=== PATIENT | female | born 1940 | race Caucasian/White ===

== ENCOUNTER → 2020-07-31 09:35 | Outpatient (CLI) | payer MEDICARE, OTHER, SELFPAY ==
--- NOTE | ~2020-07-31 | CT_ITS ---
EXAMINATION: CT abdomen pelvis w con EXAM DATE: 07/31/2020 10:22 INDICATION: Mid epigastric pain, history diverticulitis. Irritable bowel syndrome. Bilateral oophorec chey. TECHNIQUE: Spiral CT of the abdomen and pelvis was performed following intravenous injection of 100 m L Omnipaque 350. Axial, coronal and sagittal images were reviewed. The dose-length product (DLP) fo r this examination was 390.16 mGy-cm. The exposure was tailored according to patient size (auto mA e xposure control), and iterative reconstruction (ASIR) was used as additional dose reduction technique . Comparison is made to prior examination from 02/12/2018. FINDINGS: The liver, spleen, adrenal glands and pancreas are unremarkable. Gallbladder is unremarka ble. No biliary obstruction. Portal and splenic veins are patent. Kidneys enhance symmetrically. There is no hydronephrosis. There is punctate right inferior calyceal stone and a punctate left mid c alyceal stone.. The uterus is retroverted and morphologically normal. The bladder is unremarkable. There is no retroperitoneal or pelvic lymphadenopathy. There is mild scattered arteriosclerotic d isease. The appendix is normal. The stomach and small bowel are unremarkable. There is moderate to large am ount of colonic stool from the cecum through the transverse colon There is mild sigmoid colonic diver ticulosis. There is no adjacent inflammatory change to suggest diverticulitis. No free intraperiton eal gas. The heart is normal in size. There are no pericardial or pleural effusions. The lung bas es are unremarkable. There are no osteoblastic or osteolytic lesions identified. There is mild lumba r levoscoliosis. compared to prior study, interval increase in quantity of colonic stool. Otherwise no significant interval change. IMPRESSION: 1. Moderate to large amount of right hemicolonic stool, consider constipation. 2. Punctate bilateral nephrolithiasis. Reviewed, dictated and finalized at location A.
--- NOTE | ~2020-07-31 | US_ITS ---
EXAMINATION: US abdomen complete EXAM DATE: 07/31/2020 10:01 INDICATION: Left side abdominal pain, discomfort. Epigastric region. TECHNIQUE: Multiple grayscale and Doppler images of the complete abdomen were obtained (by a technolo gist who performed the scan) and subsequently reviewed. There is no prior study for comparison. FINDINGS: The abdominal aorta is normal in caliber. Mild scattered aortic arterial sclerosis. Visualized porti on IVC is patent. The pancreatic head and body are normal in appearance. The pancreatic tail is no t visualized. The liver has normal echogenicity and contour. There are no focal liver lesions identified. There is no evidence of intrahepatic biliary duct dilation. Portal venous flow was seen in the hepatopedal , normal direction and has normal Doppler waveform. Common bile duct measures 4 mm, which is normal. The gallbladder wall is normal in thickness, with ex pected amount of distention. No sonographic evidence of pericholecystic fluid. There is no cholelit hiases. Technologist performing exam reports patient did not demonstrate sonographic Rock's sign. Please note that this sign is less reliable in patients who have received pain medication. Right kidney: There is normal contour and echogenicity. It measures 8.9 x 4.1 x 4.4 centimeters. T here are no focal renal lesions identified. There is no hydronephrosis. Left kidney: There is normal contour and echogenicity. It measures 10.9 x 5.0 x 5.6 centimeters. T here are no focal renal lesions identified. There is no hydronephrosis. The spleen measures 7.2 centimeters and is morphologically normal. IMPRESSION: 1. Mild aortic arterial sclerosis. 2. Otherwise unremarkable complete abdomen ultrasound. Reviewed, dictated and finalized at location A.
[2020-07-31 10:11] LABS: Estimated Glomerular Filt Rate 53
== END ==
PROVIDERS: Visit Provider Physician Assistant
DX: R10.9 Unspecified abdominal pain (principal); N20.0 Calculus of kidney; I70.0 Atherosclerosis of aorta
CPT/HCPCS: 74177; 76700; Q9967

== ENCOUNTER 2020-08-23 10:13 | Emergency (ER) | payer MEDICARE, OTHER, SELFPAY ==
--- NOTE | ~2020-08-23 | US_ITS ---
EXAMINATION: US venous doppler [facility] EXAM DATE: 08/23/2020 12:01 INDICATION: Left calf pain. TECHNIQUE: Multiple grayscale, color flow and Doppler images of the left lower extremity deep venous system were obtained and reviewed. There is no prior study for comparison. FINDINGS: The left common femoral, femoral and profunda veins demonstrate normal color flow, respirat ory variation, augmentation and compressibility. Compressibility, color flow confirmed within the le ft popliteal, posterior tibial, peroneal, and greater saphenous veins. There is a focal hypoechoic region along the proximal aspect of the calf appears within the musculatu re which is oval, elongated measuring about 6 x 3 x 2 cm. No appreciable vascularity within this, alt neris echogenicity suggests this is solid. This is nonspecific. IMPRESSION: 1. No left lower extremity deep venous thrombosis. 2. Nonspecific left calf mass like region. Could be edematous muscle from contusion, hematoma, less likely neoplastic. Clinical correlation, consider 2 week follow-up exam and if it persists a CT lower extremity with contrast. Reviewed, dictated and finalized at location B. IMPRESSION: 1. No left lower extremity deep venous thrombosis. 2. Nonspecific left calf mass like region. Could be edematous muscle from cont usion, hematoma, less likely neoplastic. Clinical correlation, consider 2 week follow-up exam and if it persists a CT lower extremity with contrast.
[2020-08-23 10:39] VITALS: BP 141/79; PULSE 99; RESP 18; TEMP 36.4; O2SAT 99
--- NOTE | 2020-08-23 11:08 | PC.NURSE ---
patient brought back to ED room 8 with c/o pain and tenderness to her left calf that started yesterday. patient is very active. no increase in pain or swelling with activity. increase pain she noted this am when she awoke. has tender area with mild swelling on left calf. no bruising noted. no open wound noted. alert. resting on stretcher. call light in reach. aware of expected treatment time. assessments documented.
--- NOTE | 2020-08-23 11:19 | ED.LOWEXIN ---
HPI - Extremity Injury (Lower) General Chief Complaint: Extremity Injury, Lower Stated Complaint: possible DVT Time Seen by Provider: 08/23/20 11:03 Source: patient Mode of arrival: ambulatory Limitations: no limitations History of Present Illness HPI Narrative: This patient is a 79 year old female with history of hypertension who presents for evaluation left calf pain. She states she noticed some mild pain to her left calf 10 days. She is active, and she rides her bike 6-7 miles a day. She reports her pain has been bothering her while riding her bike, but this morning she was having severe pain with walking. She denies history of dVT , PE, chest pain or sob. She has been taking aleve which helps her pain. Related Data Home Medications Medication Instructions Recorded Confirmed aspirin 81 mg tablet,delayed 81 mg PO DAILY 09/25/19 08/01/20 release glucosamine sulf dipotassium Cl tablet PO 09/25/19 08/01/20 500 mg-chondroitin sulf 400 mg tablet montelukast 10 mg tablet 10 mg PO DAILY 09/25/19 08/01/20 psyllium husk 0.52 gram capsule 0.52 gm PO DAILY 09/25/19 08/01/20 wfpokqdhwpuu-ojpgaiwr-zsilsy 1 tablet PO DAILY 07/27/20 08/01/20 Allergies Allergy/AdvReac Type Severity Reaction Status Date / Time Penicillins Allergy Mild RASH PCN Verified 08/23/20 11:31 W/CORTISONE NO REACTION TO CORTISONE IN PAST Review of Systems Review of Systems: All systems reviewed & are unremarkable except as noted in HPI and below Constitutional: Constitutional: Denies chills and Denies fever(s) Cardiovascular: Cardiovascular: Denies chest pain Respiratory: Respiratory: Denies cough and Denies dyspnea Gastrointestinal: Gastrointestinal: Denies abdominal pain and Denies nausea Neurologic: Denies syncope, Denies focal weakness, Denies numbness and Denies weakness [facility] Past Medical History Medical History (Updated 08/23/20 @ 13:21 by Josselyn Knutson MD) Hypertension Surgical History Surgical History (Updated 08/23/20 @ 11:25 by Josselyn Knutson MD) History of bilateral knee replacement Social History Social History Smoking status: Never smoker Second hand tobacco smoke exposure: No Alcohol intake: current Substance use: never Gender identity (if verbalized by the patient): Female Exam Const: General: no acute distress and alert Orientation/consciousness: patient oriented x3 Eyes: EOM: EOMs intact bilaterally Chest: Chest palpation & inspection: normal inspection of the chest Resp: Effort & Inspection: normal respiratory effort Neuro: General: patient oriented x3 and moves all extremities Extrem: Other: no significant swelling, left calf tenderness, no erythema, no appreciable mass. pedal pulses present Psych: Mental Status: mental status grossly normal Course Reevaluation(s) Reevaluation #1: I Discussed with patient ultrasound shows possible hematoma vs muscle mass. Patient does exercise quite strenously so it may just be muscle contusion or hematoma. I offered CT scan of her leg. She wants to wait 2 weeks and reevaluate with PCP. If needed she will get CT at that time. Date: 08/23/20 Time: 13:16 Vital Signs Vital signs: Vital Signs Temperature 97.6 F 08/23/20 10:39 Pulse Rate 99 08/23/20 10:39 Respiratory Rate 18 08/23/20 10:39 Blood Pressure 141/79 H 08/23/20 10:39 Pulse Oximetry 99 08/23/20 10:39 Temperature 97.6 F 08/23/20 10:39 Pulse Rate 87 08/23/20 13:27 Respiratory Rate 18 08/23/20 13:27 Blood Pressure 141/78 H 08/23/20 13:27 Pulse Oximetry 100 08/23/20 13:27 MDM - Extremity Injury (Lower) Lab Data Attestation: I reviewed the patient's lab results. Result diagrams: 08/23/20 12:04 08/23/20 12:04 Labs: Lab Results 08/23/20 08/23/20 08/23/20 Range/Units 12:04 12:04 12:04 WBC 5.5 (4.5-1
--- NOTE | 2020-08-23 12:12 | PC.NURSE ---
patient back from ultrasound. labs pending.
[2020-08-23 12:18] LABS: Basophils Absolute Auto 0.1 K/mm3 (0.0-0.1); Basophils Percent Auto 1.1 % (0.2-1.2); Eosinophils Absolute Auto 0.3 K/mm3 (0-0.3); Eosinophils Percent Auto 4.7 % (0-4.4); Hematocrit 43.9 % (37.0-47.0); Hemoglobin 14.5 g/dL (12.0-15.0); Immature Granulocyte Absolute 0.01 K/mm3 (0.00-0.031); Immature Granulocyte Percent A 0.2 % (0-0.5); Lymphocytes Absolute Auto 0.94 K/mm3 (0.9-3.2); Lymphocytes Percent Auto 17.1 % (18.3-44.2); Mean Corpuscular Hemoglobin 31.3 pg (26-34); Mean Corpuscular Volume 94.6 fl (80-100); Mean Platelet Volume 10.2 fl (7.4-10.4); Monocytes Absolute Auto 0.4 K/mm3 (0.1-0.6); Monocytes Percent Auto 7.1 % (2.6-8.5); Neutrophils Absolute Auto 3.8 K/mm3 (1.3-6.7); Neutrophils Percent Auto 69.8 % (45.5-73.1); Platelet Count Result 254 k/mm3 (150-375); Red Blood Count 4.64 M/mm3 (4.2-5.4); Red Cell Distribution Width 12.7 % (11.5-14.5); White Blood Count 5.5 K/mm3 (4.5-10.0)
[2020-08-23 12:21] LABS: INR 0.9; Prothrombin Time 12.1 Seconds (11.1-14.7)
[2020-08-23 12:22] LABS: Partial Thromboplastin Time 25.7 SECONDS (22.3-36.8)
[2020-08-23 12:44] LABS: Alanine Aminotransferase 11 U/L (4-35); Albumin Level 4.5 g/dL (3.5-5.1); Alkaline Phosphatase 92 U/L (38-126); Anion Gap 7 mmol/L (8-16); Aspartate Amino Transferase 37 U/L (14-36); Bilirubin,Total 0.5 mg/dL (0.2-1.3); Blood Urea Nitrogen 16 mg/dL (7-17); Calcium 9.8 mg/dL (8.4-10.2); Carbon Dioxide 32 mmol/L (22-30); Chloride 101 mmol/L (98-107); Creatine Kinase 71 U/L (30-135); Estimated CRCL calculation 34 ml/min; Estimated Glomerular Filt Rate 60; Glucose 93 mg/dL (65-105); Potassium 4.2 mmol/L (3.4-5.0); Sodium 140 mmol/L (137-145)
[2020-08-23 13:27] VITALS: BP 141/78; PULSE 87; RESP 18; O2SAT 100
== END 2020-08-23 13:29 | disposition home or self-care (01) ==
PROVIDERS: Emergency Provider General Practice; PCP Physician Assistant
DX: S80.12XA Contusion of left lower leg, initial encounter (principal); X58.XXXA Exposure to other specified factors, initial encounter; I10 Essential (primary) hypertension; Z96.653 Presence of artificial knee joint, bilateral
CPT/HCPCS: 36415; 80053; 82550; 85025; 85610; 85730; 93971; 99284

== ENCOUNTER → 2020-08-31 08:38 | Outpatient (CLI) | payer MEDICARE, OTHER, SELFPAY ==
--- NOTE | ~2020-08-31 | CT_ITS ---
EXAMINATION: CT LE LT w con DATE: 08/31/2020 09:09 INDICATION: Left lower leg pain and swelling TECHNIQUE: High resolution computed tomography (CT) of the left lower leg excluding the left foot was performed without intravenous contrast. Additional sagittal and coronal reconstructions were perform ed. Automated exposure control and iterative reconstruction technique were employed. The dose-length product was 374.99 mGy-cm. COMPARISON: Ultrasound dated 09/02/2020 FINDINGS: Cemented medial unicompartmental left knee arthroplasty which appears well seated with no surrounding lucency to suggest loosening or infection. Alignment is normal. No fracture. Small marginal osteophy claudia at the lateral and patellofemoral compartments without significant joint space narrowing on nonwe ightbearing imaging consistent with at least mild osteoarthritis. Small central osteophytes along the patellar apical ridge consistent with high-grade chondromalacia. There is moderate fatty atrophy of the medial head of the gastrocnemius muscle. There is a lenticular complex fluid collection with hete rogeneous attenuation corresponding in size and location to the fluid collection identified on the pr ior ultrasound. This measures 12 cm in craniocaudal length and 2.9 x 2.1 cm maximal transaxial dimens ions. There is minimal peripheral enhancement without significant surrounding hyperemia or inflammato ry stranding which along with provided clinical history be most consistent with a hematoma related to muscle strain. The remaining musculature of the lower leg appears normal. No significant atheroscler otic disease appreciated with three-vessel runoff below the ankle. No left knee or ankle joint effusi ons. IMPRESSION: 1. 12 x 2.9 x 2.1 cm lenticular fluid collection in the proximal calf within the medial head of the g astrocnemius muscle most likely representing a hematoma related to muscle strain. There is moderate f atty atrophy of the muscle belly which could be related to either prior trauma or denervation. 2. Medial unicompartmental arthroplasty at the left knee with mild osteoarthritis in the medial and p atellofemoral compartments. No acute osseous abnormality. Reviewed, dictated and finalized at location B. IMPRESSION: 1. 12 x 2.9 x 2.1 cm lenticular fluid collection in the proximal calf within th e medial head of the gastrocnemius muscle most likely representing a hematoma r elated to muscle strain. There is moderate fatty atrophy of the muscle belly wh ich could be related to either prior trauma or denervation. 2. Medial unicompartmental arthroplasty at the left knee with mild osteoarthrit is in the medial and patellofemoral compartments. No acute osseous abnormality.
[2020-08-31 11:09] LABS: Estimated Glomerular Filt Rate 60
== END ==
PROVIDERS: PCP Internal Medicine; Visit Provider Physician Assistant
DX: M17.12 Unilateral primary osteoarthritis, left knee (principal)
CPT/HCPCS: 73701; Q9967

== ENCOUNTER 2020-10-03 11:33 | Outpatient (NON) | payer MEDICARE, OTHER, SELFPAY ==
[2020-10-04 14:04] LABS: SARS-CoV-2 RNA PCR Negative
== END 2020-10-03 11:34 ==
LOC: ANHCOVIDDT 11:39
PROVIDERS: Visit Provider Physician Assistant
DX: R68.89 Other general symptoms and signs (principal); Z20.828 Contact with and (suspected) exposure to other viral communicable diseases
CPT/HCPCS: 87635; C9803; U0003

== ENCOUNTER 2021-05-17 12:55 | Outpatient (CLI) | payer MEDICARE, OTHER, SELFPAY | END 2021-05-17 12:56 | disposition home or self-care (01) | LOC: ANHAUDIO 12:57 | PROVIDERS: PCP Internal Medicine; Visit Provider Otolaryngology | DX: H90.3 Sensorineural hearing loss, bilateral (principal) | CPT/HCPCS: 92557; 92567 ==

== ENCOUNTER → 2021-10-17 13:27 | Outpatient (CLI) | payer MEDICARE, OTHER, SELFPAY ==
--- NOTE | ~2021-10-17 | XR_ITS ---
EXAMINATION: XR shoulder RT min 2V DATE: 10/17/2021 13:46 INDICATION: Right shoulder pain. TECHNIQUE: 4 views of right shoulder were obtained. COMPARISON: None. FINDINGS: Bone alignment is normal. No fracture. There is mild osteoarthritis of glenohumeral joint a nd acromioclavicular joint. There is mild scarring at right lung apex. IMPRESSION: 1. Mild polyarticular osteoarthritis. Reviewed, dictated and finalized at location A. F [employer]
== END ==
PROVIDERS: PCP Internal Medicine; Visit Provider Physician Assistant
DX: M19.011 Primary osteoarthritis, right shoulder (principal)
CPT/HCPCS: 73030

== ENCOUNTER 2022-09-17 01:24 | Day surgery (SDC) | payer MEDICARE, OTHER, SELFPAY ==
[2022-09-09 14:58] VITALS: BMI 23.3
[2022-09-17 09:49] VITALS: BP 129/66; PULSE 100; RESP 17; TEMP 36.3; O2SAT 94; BMI 22.5
[2022-09-17] MEDS: LACTATED RINGERS 1,000 ML 150 ML IV CONT (10:00)
--- NOTE | 2022-09-17 10:09 | WPDANESEPPF ---
Anes - Initial Pre Proc Eval Procedure: Operation Date: 09/17/22 11:00 Proposed Procedures p Screening Colonoscopy and Esophagogastroduodenoscopy - Alfa Rider MD Date/Time: 09/17/22 10:09 Surgeon: Alfa Rider MD Pre Op Diagnosis: Neoplasm Screen, Dysplasia Patient Data Age: 82 Gender: F Height: 1.57 m Weight: 55.8 kg Last Vital Signs Temp 97.4 F L 09/17/22 09:49 Pulse 100 09/17/22 09:49 Resp 17 09/17/22 09:49 BP 129/66 09/17/22 09:49 Pulse Ox 94 09/17/22 09:49 O2 Del Method Room Air 09/17/22 09:49 Allergies Allergy/AdvReac Type Severity Reaction Status Date / Time No Known Allergies Allergy Verified 09/17/22 09:46 Home Medications Medication Instructions Recorded Confirmed Type glucosamine sulf dipotassium Cl 1 tablet PO DAILY 09/25/19 09/17/22 History 500 mg-chondroitin sulf 400 mg tablet psyllium husk 0.52 gram capsule 0.52 gm PO DAILY 09/25/19 09/17/22 History (Metamucil) ywpjqzrlqprg-svntsbgx-zezfqk tablet 1 tablet PO DAILY 07/27/20 09/09/22 History clorazepate dipotassium 7.5 mg 7.5 mg PO BID PRN anxiety #90 tabs 10/05/21 09/17/22 Rx tablet (Tranxene T-Tab) amoxicillin 500 mg capsule 500 mg PO .COMPLEX #6 caps 04/11/22 09/17/22 Rx amlodipine 10 mg tablet 10 mg PO DAILY #90 tabs 08/22/22 09/09/22 Rx omeprazole 20 mg capsule,delayed 20 mg PO DAILY #90 caps 08/22/22 09/09/22 Rx release Patient hx anesthesia problems: none Family hx anesthesia problems: none Results Review: All pre-operative results and documents have been reviewed as part of the pre-operative evaluation. [facility] Past Medical History Medical History Hypertension Surgical History Surgical History History of bilateral knee replacement Family History Family History Mother Patient's mother is Father Patient's father is Family history of heart disease in male family member before age 55 Sibling Family history of Alzheimer's disease Other Hypertension Social History Social History Smoking status: Never smoker Second hand tobacco smoke exposure: No Alcohol intake: current Alcohol use details: rarely Substance use: never Substance use type: does not use Living arrangements: alone Gender identity (if verbalized by the patient): Female Spiritual care concerns: No Anes - Eval Final PreProcedure Day of Procedure 09/17/22 10:09 Patient weight: normal Heart: regular rate and rhythm Lungs: clear to auscultation Airway: Mallampati scale class II Neurological: alert and oriented Last oral intake: >/= 8 hours ASA classification: II Emergent: no Anesthetic plan: proceed Anesthesia type and monitoring: general GIVS and standard monitoring Results Review: All pre-operative results and documents have been reviewed as part of the pre-operative evaluation. Informed Consent: The patient's anesthetic plan and its attendant risks and benefits were discussed with the patient/family/POA. Questions were solicited and answers provided to the satisfaction of the patient/family/POA.
--- NOTE | 2022-09-17 10:33 | PM.HPGS ---
History of Present Illness History of Present Illness Consent: Risks, benefits, and alternatives have been discussed and questions answered. Patient agrees to proceed with procedure. Chief complaint: Neoplasm Screen, Dysplasia Narrative: Mireya Crabtree is a 82 year old female Presents for colonoscopy and EGD. Patient complains of several brief episodes of difficulty swallowing. She states that food became stuck in her throat. She states this does not happen all the time. She denies any heartburn. Has had no weight loss or bleeding. Family history noncontributory. Patient additionally presents for screening colonoscopy. Last exam in 2009 was unremarkable. She reports her current weight appetite bowel movements are normal. Review of Systems Review of Systems: Review of systems noncontributory. [facility] Past Medical History Medical History Hypertension Surgical History Surgical History History of bilateral knee replacement Family History Family History Mother Patient's mother is Father Patient's father is Family history of heart disease in male family member before age 55 Sibling Family history of Alzheimer's disease Other Hypertension Social History Social History Smoking status: Never smoker Second hand tobacco smoke exposure: No Alcohol intake: current Alcohol use details: rarely Substance use: never Substance use type: does not use Living arrangements: alone Gender identity (if verbalized by the patient): Female Spiritual care concerns: No Meds Home Medications and Allergies Home Medications Medication Instructions Recorded Confirmed Type glucosamine sulf dipotassium Cl 1 tablet PO DAILY 09/25/19 09/17/22 History 500 mg-chondroitin sulf 400 mg tablet psyllium husk 0.52 gram capsule 0.52 gm PO DAILY 09/25/19 09/17/22 History (Metamucil) wacivszrmpnp-qryvvxqz-pkwbrd tablet 1 tablet PO DAILY 07/27/20 09/09/22 History clorazepate dipotassium 7.5 mg 7.5 mg PO BID PRN anxiety #90 tabs 10/05/21 09/17/22 Rx tablet (Tranxene T-Tab) amoxicillin 500 mg capsule 500 mg PO .COMPLEX #6 caps 04/11/22 09/17/22 Rx amlodipine 10 mg tablet 10 mg PO DAILY #90 tabs 08/22/22 09/09/22 Rx omeprazole 20 mg capsule,delayed 20 mg PO DAILY #90 caps 08/22/22 09/09/22 Rx release Allergies Allergy/AdvReac Type Severity Reaction Status Date / Time No Known Allergies Allergy Verified 09/17/22 09:46 Vital Signs Vital Signs - 24 hr 09/17/22 09:49 Temperature 97.4 F L Pulse Rate 100 Respiratory Rate 17 Blood Pressure 129/66 Pulse Oximetry 94 Oxygen Delivery Room Air Exam Narrative: Physical exam reveals patient to be alert. Vital signs stable. HEENT exam is unremarkable. Patient is anicteric. Lungs are clear to auscultation and percussion. Heart is without murmur or extra sounds. Abdominal exam bowel sounds present soft nontender with no organomegaly. Digital external rectal exam normal. Assessment and Plan Assessment and plan (1) Dysphagia: Qualifiers: Dysphagia type: unspecified Qualified Code(s): R13.10 - Dysphagia, unspecified Code(s): R13.10 - Dysphagia, unspecified Status: Acute Assessment and Plan: Patient has had several 5 episodes with difficulty swallowing solid foods. Plan for EGD to exclude organic disease in the esophagus. Further recommendations will be given after endoscopy. (2) Encounter for screening colonoscopy: Code(s): Z12.11 - Encounter for screening for malignant neoplasm of colon Status: Acute Assessment and Plan: Screening colonoscopy advised as is been more than 10 years since last exam. Further recomme
--- NOTE | 2022-09-17 11:11 | SUR.OPER ---
EGD START 1047, END 1048 COLONOSCOPY START 1055, END 1111
[2022-09-17 11:15] VITALS: BP 108/51; PULSE 100; RESP 23; O2SAT 100
[2022-09-17 11:25] VITALS: BP 104/69; PULSE 104; RESP 18; O2SAT 100
[2022-09-17 11:35] VITALS: BP 104/69; PULSE 101; RESP 18; O2SAT 100
== END 2022-09-17 11:46 | disposition home or self-care (01) ==
PROVIDERS: PCP Physician Assistant; Visit Provider Internal Medicine Gastroenterology
PROC: 0DJ08ZZ Inspection of Upper Intestinal Tract, Via Natural or Artificial Opening Endoscopic (ICD-10-PCS; CPT 43235; principal; 2022-09-17 11:00)
DX: Z12.11 Encounter for screening for malignant neoplasm of colon (principal); K64.8 Other hemorrhoids; K57.30 Diverticulosis of large intestine without perforation or abscess without bleeding; R13.10 Dysphagia, unspecified; I10 Essential (primary) hypertension
CPT/HCPCS: 43239; G0121; 87081; J2704; J7120

== ENCOUNTER → 2023-02-19 13:02 | Outpatient (CLI) | payer MEDICARE, OTHER, SELFPAY ==
--- NOTE | ~2023-02-19 | XR_ITS ---
EXAMINATION: XR chest 2V Exam Date/Time: 02/19/2023 13:10 CDT HISTORY: Chronic cough, chest tightness x 1 d;HTN, non smoker Comparison: 04/14/2017. RESULT: Lines, tubes, and devices: None. Lungs and pleura: Senescent/emphysematous change. Bilateral mid and lower lung scar/atelectasis. Cardiomediastinal silhouette: Stable. Prominent central pulmonary arteries as can be seen with pulmo nary hypertension. Posterior diaphragmatic eventration. Other: No acute osseous or upper abdominal finding. IMPRESSION: No acute cardiopulmonary process. Reviewed, dictated and finalized at location K.
== END ==
PROVIDERS: PCP Internal Medicine; Visit Provider Physician Assistant
DX: R05.3 Chronic cough (principal); I10 Essential (primary) hypertension
CPT/HCPCS: 71046

== ENCOUNTER 2024-04-12 12:31 | Emergency (ER) | payer MEDICARE, SELFPAY ==
[2024-04-12] VITALS (7 sets, daily range): BP systolic 140–158; BP diastolic 71–86; PULSE 71–88; RESP 16–17; TEMP 36.6; O2SAT 96–99
--- NOTE | ~2024-04-12 | XR_ITS ---
XR shoulder RT min 2V, XR scapula RT 04/12/2024 14:11 Indication: Right shoulder pain after fall Procedure: 4 views right shoulder and 2 views right scapula Comparison: No prior studies for comparison. Findings: No fracture, subluxation or dislocation. No soft tissue abnormality. 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 Osteopenia. Impression: 1: No acute fracture. Reviewed, dictated and finalized at location A. Impression: 1: No acute fracture. Impression: 1: No acute fracture.
--- NOTE | 2024-04-12 14:45 | ED.EXTPRO ---
HPI - Extremity Problem General Chief complaint: Extremity Problem,Nontraumatic Stated complaint: R. shoulder/arm pain Time Seen by Provider: 04/12/24 14:09 History of Present Illness HPI Narrative: Patient is an 83-year-old female who presents to the emergency department this afternoon complaining of right scapular muscle pain. Patient states that she was on her ladder picking chair E is and thinks that she may have twisted the wrong way or pulled some muscle. Patient states that she has been using some heating pads and ibuprofen at home but has not alleviated her symptoms. Patient denies any falls or trauma to this area. She admits that she is active and exercises daily. Patient tried to continue with her daily exercises and believes that when she was lifting some weights she worsened her symptoms. She denies any additional symptoms or concerns at this time. Related Data Home Medications Medication Instructions Recorded Confirmed glucosamine sulf dipotassium Cl 1 tablet PO DAILY 09/25/19 12/19/23 500 mg-chondroitin sulf 400 mg tablet psyllium husk 0.52 gram capsule 0.52 gm PO DAILY 09/25/19 12/19/23 (Metamucil) vdrjbcxupnal-nrqthbsp-gbgxue tablet 1 tablet PO DAILY 07/27/20 12/19/23 Allergies Allergy/AdvReac Type Severity Reaction Status Date / Time No Known Allergies Allergy Verified 12/19/23 14:01 Review of Systems Review of Systems: All systems are reviewed and are negative unless stated otherwise in the HPI. [facility] Past Medical History Medical History Hyperlipidemia Hypertension Surgical History Surgical History History of bilateral knee replacement Family History Family History Mother Patient's mother is Father Patient's father is Family history of heart disease in male family member before age 55 Sibling Family history of Alzheimer's disease Other Hypertension Social History Social History Smoking status: Never smoker Second hand tobacco smoke exposure: No Alcohol intake: current Alcohol use details: rarely Substance use: never Substance use type: does not use Lack of Transportation: No Lack of Food: Never True Current Housing: I Have Housing Concerned About Future Housing: No Difficulty Paying Gas/Electric Bills: No Currently Unemployed: No Education: High School Diploma/GED Difficulty w/ Childcare or Family Care: No Living arrangements: alone Gender identity (if verbalized by the patient): Female Spiritual care concerns: No Exam Narrative: General: Alert, awake, afebrile, in no acute distress. HEENT: PERRL, no rhinorrhea, no post nasal drip, oropharynx clear. Cardiovascular: Regular rate and rhythm, no murmurs, rubs or gallops, no peripheral edema. Respiratory: Clear to auscultation bilaterally, no tachypnea, no wheezing, no rhonchi, no rubs, no respiratory distress. Abdomen: Soft, nontender, nondistended, no rebound, no guarding, no peritoneal signs. Musculoskeletal: No joint swelling or deformity, normal muscle tone, point tenderness to palpation over the superior mid scapula reproducible with palpation. Skin: No rashes or petechia, no signs of infection. Neurological: Alert and oriented to person, place, and time. Follows all commands. No focal deficits, speech is clear and fluent. Course Vital Signs Vital signs: Vital Signs Temperature 97.8 F 04/12/24 12:46 Pulse Rate 88 04/12/24 12:46 Respiratory Rate 16 04/12/24 12:46 Blood Pressure 158/71 H 04/12/24 12:46 Pulse Oximetry 96 04/12/24 12:46 Oxygen Delivery Room Air 04/12/24 12:46 Temperature 97.8 F 04/12/24 12:46 Pulse Rate 88 04/12/24 12:46 Respiratory Rate 16 04/12/24 12:46
[2024-04-12] MEDS: LIDOCAINE 5% PATCH 1 PATCH TRANSDERM (15:01)
[2024-04-12] MEDS: methocarbamoL 500 MG TABLET PO (15:01)
== END 2024-04-12 15:09 | disposition home or self-care (01) ==
PROVIDERS: Emergency Provider Emergency Medicine; PCP Internal Medicine
DX: S46.911A Strain of unspecified muscle, fascia and tendon at shoulder and upper arm level, right arm, initial encounter (principal); E78.5 Hyperlipidemia, unspecified; I10 Essential (primary) hypertension; Z96.653 Presence of artificial knee joint, bilateral; X50.9XXA Other and unspecified overexertion or strenuous movements or postures, initial encounter
CPT/HCPCS: 73010; 73030; 99283; A9270

== ENCOUNTER 2024-04-14 11:47 | Outpatient (CLI) | payer MEDICARE, SELFPAY ==
--- NOTE | ~2024-04-14 | XR_ITS ---
EXAM: XR thoracic spine 3V DATE: 04/14/2024 12:03 HISTORY: M54.9 - Dorsalgia, unspecified . COMPARISON: CT thorax 10/25/2011. FINDINGS: Mild thoracic kyphosis. Decreased mineralization. Mild scoliosis. Vertebral bodies aligned . Vertebral body heights preserved. Multilevel mild disc space narrowing and marginal osteophytosis. No traumatic malalignment or fracture. Visualized lung parenchyma is clear. Incidental note of degene rative change and listheses in the cervical spine. IMPRESSION: Osteopenia. Mild thoracic scoliosis. Multilevel mild degenerative disc disease. Reviewed, dictated and finalized at location K. IMPRESSION: Osteopenia. Mild thoracic scoliosis. Multilevel mild degenerative d isc disease.
== END 2024-04-14 11:48 | disposition home or self-care (01) ==
LOC: ANHIMG 11:49
PROVIDERS: PCP Internal Medicine; Visit Provider Internal Medicine
DX: M41.84 Other forms of scoliosis, thoracic region (principal); M51.34 Other intervertebral disc degeneration, thoracic region; M51.26 Other intervertebral disc displacement, lumbar region
CPT/HCPCS: 72072

== ENCOUNTER 2024-06-01 10:49 | Outpatient (CLI) | payer MEDICARE, SELFPAY ==
--- NOTE | ~2024-06-01 | MR_ITS ---
MRI of the cervical spine Clinical History: Cervicalgia Technique: Axial T2-weighted and gradient images, and sagittal T1-weighted, T2-weighted, and STIR feng ges were acquired. Findings: No acute fracture or subluxation identified. There is mild reversal of the normal cervical lordosis. No suspicious bone marrow signal abnormality seen. At C2-C3, there is no disc bulge or herniation. No spinal canal stenosis, cord compression, or neural foraminal narrowing. At C3-C4, there is left paracentral disc osteophyte complex, with minimal flattening of the ventral, left spinal cord. There is possible minimal left neural foraminal narrowing. Right neural foramen pre served. At C4-C5, there is severe degenerative disc narrowing. There is mild disc ossify complex. No canal st enosis or cord compression. There is right neural foraminal narrowing. Left neural foramen preserved. At C5-C6, there is severe degenerative disc narrowing. There is minimal disc ossify complex, but no c anal stenosis or cord compression. Neural foramina are preserved. At C6-C7, there is advanced degenerative disc narrowing. There is minimal disc osteophyte complex, bu t no canal stenosis or cord compression. Possible mild bilateral neural foraminal narrowing. No abnormal signal seen in the spinal cord. Paravertebral soft tissues are unremarkable. Impression: Moderate degenerative spondylosis, as detailed above, with reversal of the normal cervical lordosis. Reviewed, dictated and finalized at [facility]. Impression: Moderate degenerative spondylosis, as detailed above, with reversal of the norm al cervical lordosis.
== END 2024-06-01 10:50 | disposition home or self-care (01) ==
PROVIDERS: PCP Internal Medicine; Visit Provider Physician Assistant Surgical
DX: M47.892 Other spondylosis, cervical region (principal)
CPT/HCPCS: 72141